=== PATIENT | male | born 1940 | race Caucasian/White ===

== ENCOUNTER → 2017-08-09 | Outpatient (CLI) | payer MEDICARE ==
[~2017-08-09] MED LIST: GLIM2TAB PO; LISI-515 PO; METF500T PO; METO1TAB42 PO; ROSU1TAB6 PO
--- NOTE | 2017-08-16 09:13 | RSPPFT ---
DATE OF PROCEDURE: 08/09/17 COMMENTS: Spirometry with FVC of 2.9, FEV1 of 2.1, FEV1/FVC ratio at 72%. Non-significant response to acutely inhaled bronchodilator noted. Slow vital capacity is 83% of predicted. TLC is 79%. Diffusion capacity is 71% of predicted and normal when corrected for alveolar volume. IMPRESSION: 1. Moderate airways obstruction. 2. Associated mild airways restriction. 3. Mild reduction in diffusion capacity and normal when corrected for alveolar volume. 4. Non-significant response to acutely inhaled bronchodilator.
== END ==
LOC: PHRSP 09:26
PROVIDERS: ATTEND Internal Medicine Sleep Medicine
DX: R06.89 Other abnormalities of breathing (principal)
CPT/HCPCS: 94060; 94726; 94729